=== PATIENT | male | born 1990 | race Caucasian/White ===

== ENCOUNTER 2020-07-23 13:33 | Emergency (ER) | payer SELFPAY ==
[2020-07-23 15:14] VITALS: BP 130/80; PULSE 86; RESP 16; TEMP 36.9; O2SAT 97; BMI 31.3
--- NOTE | 2020-07-23 15:39 | ED.SKABFB ---
HPI - Skin/Abscess/Foreign Bdy General Chief complaint: Skin/Abscess/Foreign Body Stated complaint: athletes foot? Time Seen by Provider: 07/23/20 15:35 History of Present Illness HPI narrative: Patient complains of fungal rash on toes and now he has been scratching a lot and he thinks he has some of the rash on his fingers, it is not painful, there is no fever or chills and no other associated symptoms this is been going on for several weeks and he thinks he got it from scratching his athlete's foot with his fingers and now has a rash on his fingers Related Data Previous Rx's Medication Instructions Recorded clotrimazole 1 applic TOPICAL BID PRN #28 g 07/23/20 fluconazole [Diflucan] 150 mg PO .once in 3 days 1 Days 07/23/20 tab hydrocortisone 1 applic TOPICAL BID PRN #20 g 07/23/20 Allergies Allergy/AdvReac Type Severity Reaction Status Date / Time No Known Allergies Allergy Verified 07/23/20 15:17 Review of Systems Review of Systems: No fever no chills no numbness no weakness no paresthesias no joint pain Yes all other systems are reviewed and are negative FORMERLY [facility] Past Medical History Source: nursing notes reviewed Medical History (Updated 07/23/20 @ 15:41 by JABIER Franco) No known health problems Social History Social History Advance Directives: No Advance Directives Information Provided: No Physical Exam Vital Signs: Vital Signs: Last Vital Signs Temp 98.4 F 07/23/20 15:14 Pulse 86 07/23/20 15:14 Resp 16 07/23/20 15:14 BP 130/80 07/23/20 15:14 Pulse Ox 97 07/23/20 15:14 Body Mass Index 31.3 Patient is A&O x3 comfortable cooperative no acute distress Neck is supple Respiratory no respiratory distress Exam of the fingers shows small whitish lesions on fingertips which are not tender there is no surrounding erythema, no sign of secondary infection, skin is intact, no blistering Web spaces in toe is show rash consistent with athlete's foot neuro, no focal deficit Course Course Course Narrative: Patient thinks rash on fingers is related to his fungal infection in his toes I was unsure so I recommended applied antifungal but also use hydrocortisone in case it is a nonspecific dermatitis Discharge Plan Discharge Clinical Impression: Tinea pedis Qualifiers: Laterality: bilateral Qualified Code(s): B35.3 - Tinea pedis Patient Disposition: Home, Self-Care Additional Instructions: Rash on fingers may be inflammatory or possibly fungal so we are treating with both antifungal in cream and anti-inflammatory cream If not better follow with primary physician or regional transportation manager Return to ER any time any worse condition or any concerns Prescriptions: New clotrimazole 1 % cream 1 applic topical BID PRN (Reason: fungal rash) Qty: 28 RF: 0 fluconazole [Diflucan] 150 mg tablet 150 mg PO .once in 3 days 1 Days RF: 0 hydrocortisone 2.5 % cream 1 applic topical BID PRN (Reason: rash) Qty: 20 RF: 0 Interventions: ED Discharge Assessment Last Done: 07/23/20 16:00 Discharge Date/Time: 07/23/20 16:00
[2020-07-23] MEDS: Fluconazole 150 MG TABLET PO (15:57)
== END 2020-07-23 16:00 | disposition home or self-care (01) ==
PROVIDERS: Emergency Provider Internal Medicine
DX: B35.3 Tinea pedis (principal); Z79.899 Other long term (current) drug therapy
CPT/HCPCS: 99283

== ENCOUNTER 2021-03-30 10:29 | Emergency (ER) | payer MEDICAID, SELFPAY ==
--- NOTE | ~2021-03-30 | CT_ITS ---
EXAMINATION: CT ABDOMEN AND PELVIS WITHOUT CONTRAST CLINICAL INFORMATION: Left low quadrant pain COMPARISON: February 06, 2010 TECHNIQUE: Multidetector volumetric imaging was performed from the superior aspect of the liver through the pubic symphysis. Sagittal and coronal reformatted images were obtained on the technologist's workstation. This CT examination was performed using dose optimization techniques as appropriate, variously including the following: *Automated exposure control *Adjustment of mA and/or kV according to patient size (this includes techniques or standardized protocols for targeted exams where dose is matched to indication/reason for exam; i.e. extremities or head) *Use of iterative reconstruction technique DLP: 602 mGy-cm FINDINGS: LUNG BASES: Lung bases appear unremarkable. No pleural or pericardial effusion. LIVER, GALLBLADDER, AND BILIARY TREE: The liver is normal in size, shape, and attenuation. No focal hepatic lesion or biliary ductal dilatation is present. The gallbladder is unremarkable with no evidence of radiopaque gallstones, gallbladder wall thickening, or obvious pericholecystic inflammatory changes. PANCREAS: Unremarkable. SPLEEN: Unremarkable. ADRENAL GLANDS: Unremarkable. KIDNEYS AND URETERS: The kidneys are normal in size, shape, and attenuation. No hydronephrosis, hydroureter, or calculi seen. No perinephric stranding. BLADDER: Unremarkable. GASTROINTESTINAL TRACT: No free air or free fluid is identified. No dilated loops of large or small bowel. There is no evidence of acute diverticulitis. No pericolonic inflammatory changes seen. The appendix appears unremarkable. ABDOMINAL WALL: No significant hernia is appreciated. LYMPH NODES: No lymphadenopathy is appreciated. VASCULAR: Unremarkable. PELVIC VISCERA: No abnormal pelvic mass or free fluid is seen. There are some prostate calcifications present. OSSEOUS STRUCTURES: Unremarkable. CT/CT abdomen pelvis wo con IMPRESSION: No specific abnormal findings to suggest patient's complaints.
[2021-03-30 10:36] VITALS: BP 121/76; PULSE 92; RESP 16; TEMP 36.4; O2SAT 96; BMI 31.6
--- NOTE | 2021-03-30 11:53 | ED_ITS ---
HPI - Abdominal Pain General Chief Complaint: Abdominal Pain Stated Complaint: bladder pain Time Seen by Provider: 03/30/21 11:30 History of Present Illness HPI narrative: Patient 30 old male presents today with having pain on urination pain in the left lower quadrant. Patient is sexually active with multiple partners no condom no penile discharge. Patient complained the pain is sharp in nature. Never had a kidney stone in the past. Does not radiate to the flank. No fever no chills no cough no congestion or respiratory symptoms. No nausea no vomiting. No change in bowel movement. Patient from home. No history of abdominal surgery in the past. No history kidney stones in the past. Related Data Previous Rx's Medication Instructions Recorded clotrimazole 1 % topical cream 1 applic TOPICAL BID PRN #28 g 07/23/20 fluconazole 150 mg tablet 150 mg PO .once in 3 days 1 Days 07/23/20 (Diflucan) tab hydrocortisone 2.5 % topical cream 1 applic TOPICAL BID PRN #20 g 07/23/20 doxycycline hyclate 100 mg tablet 100 mg PO BID 7 Days #14 tab 03/30/21 Allergies Allergy/AdvReac Type Severity Reaction Status Date / Time No Known Allergies Allergy Verified 07/23/20 15:17 Review of Systems Review of Systems Constitutional: No Weight loss, No Fever, No Chills, No Night Sweats, No Fatigue, No Malaise ENT/Mouth: No Hearing loss, No Ear Pain, No Nasal Congestion, No Sinus Pain, No Hoarseness, No sore throat, No Rhinorrhea, No Swallowing Difficulty Eyes: No Eye Pain, No Swelling, No Redness, No Foreign Body, No Discharge, No Vision Changes Cardiovascular: No Chest Pain, No SOB, No Dyspnea on Exertion, No Orthopnea, No Edema, No Palpitations Respiratory: No Cough, No Sputum, No Wheezing, No Smoke Exposure, No Dyspnea Gastrointestinal: No Nausea, No Vomiting, No Diarrhea, No Constipation, No abdo ebony Pain, No Hematochezia, No Melena Genitourinary: no irregular bleeding, No Dysuria, No Urinary Frequency, No Hematuria, No Urinary Incontinence, No Urgency, No Flank Pain, No Urinary Flow Changes, No Hesitancy Musculoskeletal: No joint pain, No Myalgias, No Joint Swelling Skin: No Skin Lesions, No rash Neuro: No Weakness, No Numbness, No Paresthesias, No Loss of Consciousness, No Dizziness, No Headache Psych: No Anxiety/Panic, No Depression, No SI/HI/AH/VH, No Social Issues, Heme/Lymph: No Bruising, No Bleeding,No Lymphadenopathy Endocrine: No Polyuria, No Polydipsia, No Temperature Intolerance Physical Exam Vital Signs: Vital Signs: Last Vital Signs Temp 98.2 F 03/30/21 14:00 Pulse 62 03/30/21 14:00 Resp 18 03/30/21 14:00 BP 113/71 03/30/21 14:00 Pulse Ox 97 03/30/21 14:00 Body Mass Index 31.6 Appearance: Alert. Oriented X3. No acute distress. Eyes: Pupils equal, round and reactive to light. ENT: Pharynx normal. Neck: Normal inspection. Neck supple. No lymph nodes noted. No crepitus CVS: Normal heart rate and rhythm. Pulses normal. Normal S1 and S2 Respiratory: No respiratory distress. Breath sounds normal. No Wheezing. No rales Abdomen: Soft and nontender. No rigidity. No distention. good BS x4 Skin: Skin warm and dry. Normal skin color. Normal skin turgor. Extremities: No lower extremity edema. Neurovascular intact to all extremities. No Lacerations. No Rash Neuro: Oriented X 3. No motor deficit. No sensory deficit. Moving all extermities. No slurred speech MDM - Abdominal Pain MDM Narrative Medical decision making narrative: Patient's urine showed no signs of infection. GC chlamydia was sent. CT scan of the abdomen did not show any acute evidence of stone. Will discharge patient home. Will go ahead and treat patient for possible STD. Will have patient take precaution. CT scan also did not show any acute evidence of obstruction, abscess, perforation. Patient is in stable cond ition with discharge home Lab Data Result diagrams: 03/30/21 12:05 03/30/21 12:05 Labs: Lab Results 03/30/21 03/30/21 03/30/21 Range/Units 12:05 12:05 12:09 WBC 10.4 (4.8-10.8) X10*3/uL RBC 5.58 (4.60-5.80) X10*6/uL Hgb 17.8 (14.0-18.0) g/dl Hct 51.0 (42-52) % MCV 91.4 (80-98) fL MCH 31.9 (27.0-33.0) pg MCHC 34.9 (31.0-36.0) g/dl RDW 12.2 (11.0-16.0) % Plt Count 261 (160-400) X10*3/uL MPV 9.8 (9.4-12.4) fL Immature Gran % (Auto) 0.3 (0.0-0.4) % Neut % (Auto) 70.8 (45-73) % Lymph % (Auto) 20.2 (20-40) % [place] % (Auto) 7.2 (2-11) % Eos % (Auto) 1.2 (0-4) % Baso % (Auto) 0.3 (0-2) % Lymph # (Auto) 2.1 (1.2-4.9) X10*3/uL [place] # (Auto) 0.8 (0.1-1.2) X10*3/uL Eos # (Auto) 0.1 (0.0-0.4) X10*3/uL Baso # (Auto) 0.0 (0.0-0.2) X10*3/uL Abs Immat Gran (auto) 0.03 (0.00-0.03) X10*3/uL Absolute Neuts (auto) 7.4 (2.0-8.3) X10*3/uL Absolute Nucleated RBC 0.000 (0.0-0.012) X10*3/uL Nucleated RBC % (auto) 0.0 (0.0-0.2) /100WBC Sodium 136 (135-145) mmol/L Potassium 4.5 (3.3-5.1) mmol/L Chloride 102 (96-108) mmol/L Carbon Dioxide 26 (22-29) mmol/L Anion Gap 13 (12-20) BUN 23 H (9-16) mg/dL Creatinine 1.40 (0.5-1.4) mg/dL Estim Creat Clear Calc 85.9 Estimated GFR 60 Random Glucose 77 (60-115) mg/dL Calcium 10.2 (8.4-10.2) mg/dL Urine Color YELLOW Urine Appearance CLEAR Urine pH 6.0 (5.0-8.0) Ur Specific [place] 1.020 (1.005-1.025) Urine Protein TRACE (NEG-TRACE) MG/DL Urine Glucose (UA) NEG (NEG) MG/DL Urine Ketones NEG (NEG) MG/DL Urine Blood NEG (NEG) Urine Nitrite NEG (NEG) Ur Leukocyte Esterase NEG (NEG) Urine RBC 0-2 (0) /HPF Urine WBC 0-2 (0-4) /HPF Ur Squamous Epith Cells NONE /LPF Ur Renal Epithelial Cell TRACE /LPF Calcium Phosphate Cryst TRACE /LPF Urine Bacteria NONE /LPF Chlam trachomat DNA PCR (Not Detect.) N.gonorrhoeae DNA (PCR) (Not Detect.) 03/30/21 Range/Units 13:20 WBC (4.8-10.8) X10*3/uL RBC (4.60-5.80) X10*6/uL Hgb (14.0-18.0) g/dl Hct (42-52) % MCV (80-98) fL MCH (27.0-33.0) pg MCHC (31.0-36.0) g/dl RDW (11.0-16.0) % Plt Count (160-400) X10*3/uL MPV (9.4-12.4) fL Immature Gran % (Auto) (0.0-0.4) % Neut % (Auto) (45-73) % Lymph % (Auto) (20-40) % [place] % (Auto) (2-11) % Eos % (Auto) (0-4) % Baso % (Auto) (0-2) % Lymph # (Auto) (1.2-4.9) X10*3/uL [place] # (Auto) (0.1-1.2) X10*3/uL Eos # (Auto) (0.0-0.4) X10*3/uL Baso # (Auto) (0.0-0.2) X10*3/uL Abs Immat Gran (auto) (0.00-0.03) X10*3/uL Absolute Neuts (auto) (2.0-8.3) X10*3/uL Absolute Nucleated RBC (0.0-0.012) X10*3/uL Nucleated RBC % (auto) (0.0-0.2) /100WBC Sodium (135-145) mmol/L Potassium (3.3-5.1) mmol/L Chloride (96-108) mmol/L Carbon Dioxide (22-29) mmol/L Anion Gap (12-20) BUN (9-16) mg/dL Creatinine (0.5-1.4) mg/dL Estim Creat Clear Calc Estimated GFR Random Glucose (60-115) mg/dL Calcium (8.4-10.2) mg/dL Urine Color Urine Appearance Urine pH (5.0-8.0) Ur Specific [place] (1.005-1.025) Urine Protein (NEG-TRACE) MG/DL Urine Glucose (UA) (NEG) MG/DL Urine Ketones (NEG) MG/DL Urine Blood (NEG) Urine Nitrite (NEG) Ur Leukocyte Esterase (NEG) Urine RBC (0) /HPF Urine WBC (0-4) /HPF Ur Squamous Epith Cells /LPF Ur Renal Epithelial Cell /LPF Calcium Phosphate Cryst /LPF Urine Bacteria /LPF Chlam trachomat DNA PCR NOT DETECTED (Not Detect.) N.gonorrhoeae DNA (PCR) NOT DETECTED (Not Detect.) Discharge Plan Discharge Clinical Impression: Dysuria Patient Disposition: Home, Self-Care Instructions: Sexually Transmitted Diseases (ED), Male Condom Use (ED), Safe Sex Practices (ED) Prescriptions: New doxycycline hyclate 100 mg tablet 100 mg PO BID 7 Days Qty: 14 RF: 0 No Action clotrimazole 1 % cream 1 applic topical BID PRN (Reason: fungal rash) Qty: 28 RF: 0 fluconazole [Diflucan] 150 mg tablet 150 mg PO .once in 3 days 1 Days RF: 0 hydrocortisone 2.5 % cream 1 applic topical BID PRN (Reason: rash) Qty: 20 RF: 0 Referrals: Physician,None [Primary Care Provider] - 2 days (No sexual activity until partners are tested. Treated.) [facility] Past Medical History Attestation statement: The following information was validated with the patient. Medical History No known health problems Social History Social History Alcohol intake: never Patient Tobacco Use Status: Never used Tobacco Use of substances other than those prescribed or required for medical reasons: No Advance Directives: Yes Advance Directives Information Provided: Yes Advance Directives on File: No
[2021-03-30 12:10] LABS: MANUAL DIFF FLAG NO
[2021-03-30 12:13] LABS: Basophils Percent Auto 0.3 % (0-2); Eosinophils Absolute Auto 0.1 X10*3/uL (0.0-0.4); Eosinophils Percent Auto 1.2 % (0-4); Hemoglobin 17.8 g/dl (14.0-18.0); Imm Gran Abs Auto 0.03 X10*3/uL (0.00-0.03); Imm Gran Pct Auto 0.3 % (0.0-0.4); Lymphocytes Absolute Auto 2.1 X10*3/uL (1.2-4.9); Lymphocytes Percent Auto 20.2 % (20-40); Mean Corpuscular HGB Conc 34.9 g/dl (31.0-36.0); Mean Corpuscular Hemoglobin 31.9 pg (27.0-33.0); Mean Corpuscular Volume 91.4 fL (80-98); Mean Platelet Volume 9.8 fL (9.4-12.4); Monocytes Absolute Auto 0.8 X10*3/uL (0.1-1.2); Monocytes Percent Auto 7.2 % (2-11); Neutrophils Absolute Auto 7.4 X10*3/uL (2.0-8.3); Neutrophils Percent Auto 70.8 % (45-73); Platelet Count 261 X10*3/uL (160-400); Red Blood Count 5.58 X10*6/uL (4.60-5.80); Red Cell Distribution Width 12.2 % (11.0-16.0); White Blood Count 10.4 X10*3/uL (4.8-10.8)
[2021-03-30 12:20] LABS: Appearance Urine CLEAR; Color Urine YELLOW; Glucose Urine UA NEG (NEG); Leukocyte Esterase Urine NEG (NEG); Nitrite Urine NEG (NEG); Urine Blood NEG (NEG); Urine Ketones NEG (NEG); Urine Protein TRACE MG/DL (NEG-TRACE)
[2021-03-30 12:26] VITALS: BP 166/77; PULSE 61; RESP 19; TEMP 36.7; O2SAT 98
[2021-03-30 12:31] LABS: RBC Urine 0-2 /HPF (0); Renal Epithelial Cells Urine TRACE /LPF; WBC Urine 0-2 /HPF (0-4)
[2021-03-30 12:32] LABS: Calcium Phosphate Crystals Ur TRACE /LPF
[2021-03-30 12:43] LABS: Anion Gap 13 (12-20); Blood Urea Nitrogen 23 mg/dL (9-16); Calcium 10.2 mg/dL (8.4-10.2); Carbon Dioxide 26 mmol/L (22-29); Chloride 102 mmol/L (96-108); Creatinine Clr Calc Pharmacy 85.9; Estimated Glomerular Filt Rate 60; Glucose Random 77 mg/dL (60-115); Potassium 4.5 mmol/L (3.3-5.1); Sodium 136 mmol/L (135-145)
[2021-03-30 14:00] VITALS: BP 113/71; PULSE 62; RESP 18; TEMP 36.8; O2SAT 97
[2021-03-30 15:13] LABS: CT PCR NOT DETECTED (Not Detect.); NG PCR NOT DETECTED (Not Detect.)
--- NOTE | 2021-03-30 16:18 | PC.NURSE ---
into room to discharge pt x3, not present, unable to find pt
--- NOTE | 2021-03-30 16:21 | PC.NURSE ---
Unsure if pt eloped prior to IV removed- [facility] contacted.
== END 2021-03-30 16:24 | disposition home or self-care (01) ==
PROVIDERS: Emergency Provider Emergency Medicine Emergency Medical Services
DX: R30.0 Dysuria (principal); R10.32 Left lower quadrant pain; Z87.442 Personal history of urinary calculi
CPT/HCPCS: 36415; 74176; 80048; 81001; 85025; 87491; 87591; 96360; 96372; 99284

== ENCOUNTER 2021-12-22 13:52 | Outpatient (REF) | payer MEDICAID, SELFPAY ==
--- NOTE | ~2021-12-22 | XR_ITS ---
EXAMINATION: BILATERAL WRIST X-RAY CLINICAL INFORMATION: Pain COMPARISON: Previous left wrist x-ray October 2013 TECHNIQUE: 4 views of each wrist FINDINGS: Left: Bone alignment is normal. No fracture or dislocation is seen. The joint spaces are normal. The soft tissues are normal. Right: Bone alignment is normal. No fracture or dislocation is seen. Joint spaces are normal. Soft tissues are normal. XR/XR wrist LT min 3V IMPRESSION: Normal bilateral wrists.
--- NOTE | ~2021-12-22 | XR_ITS ---
EXAMINATION: BILATERAL WRIST X-RAY CLINICAL INFORMATION: Pain COMPARISON: Previous left wrist x-ray October 2013 TECHNIQUE: 4 views of each wrist FINDINGS: Left: Bone alignment is normal. No fracture or dislocation is seen. The joint spaces are normal. The soft tissues are normal. Right: Bone alignment is normal. No fracture or dislocation is seen. Joint spaces are normal. Soft tissues are normal. XR/XR wrist RT min 3V IMPRESSION: Normal bilateral wrists.
== END 2021-12-22 13:53 | disposition home or self-care (01) ==
LOC: HO.HOSX 13:52
PROVIDERS: Visit Provider Physician Assistant
DX: M25.532 Pain in left wrist (principal); M25.531 Pain in right wrist
CPT/HCPCS: 73110; 99202

== ENCOUNTER → 2022-01-17 09:16 | Outpatient (BNVA) | payer MEDICAID, SELFPAY | PROVIDERS: Visit Provider Orthopaedic Surgery | DX: M25.531 Pain in right wrist (principal); M25.532 Pain in left wrist | CPT/HCPCS: 99212 ==

== ENCOUNTER 2022-01-25 14:02 | Outpatient (REF) | payer MEDICAID, SELFPAY ==
--- NOTE | ~2022-01-25 | MR_ITS ---
EXAMINATION: MR WRIST WITHOUT CONTRAST, RIGHT CLINICAL INFORMATION: Right wrist pain. COMPARISON: Right wrist radiographs dated 12/22/2021. TECHNIQUE: MRI of the wrist was performed using routine sequences on a high-field scanner. FINDINGS: TRIANGULAR FIBROCARTILAGE: Intact. INTRINSIC LIGAMENTS: There is mild attenuation and irregularity of the scapholunate ligament with a volar, lobulated cyst along the distal surface measuring 0.8 x 0.4 x 0.5 cm. No full-thickness ligament tear. Intact lunotriquetral ligament. TENDONS/MEDIAN NERVE: Minimal extensor carpi ulnaris tendinosis without a measurable tendon tear. Unremarkable median nerve. ARTICULAR CARTILAGE/BONE: Mild articular cartilage thinning with tiny marginal osteophytes at the triscaphe and 1st carpometacarpal joints. No evidence of acute osseous injury. JOINT FLUID/SOFT TISSUES: No significant joint effusion. MR/MR wrist RT wo con IMPRESSION: 1. 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 There is an associated volar cyst along the distal surface of the ligament measuring up to 0.8 cm, likely representing a ganglion cyst. 2. Minimal extensor carpi ulnaris tendinosis without a tendon tear or retraction. 3. 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
== END 2022-01-25 14:03 | disposition home or self-care (01) ==
LOC: HO.MRI 14:02
PROVIDERS: Visit Provider Orthopaedic Surgery
DX: M25.531 Pain in right wrist (principal)
CPT/HCPCS: 73221

== ENCOUNTER 2022-07-09 05:45 | Emergency (ER) | payer MEDICAID, SELFPAY ==
[2022-07-09 06:16] VITALS: BP 139/78; PULSE 102; RESP 16; TEMP 37.1; O2SAT 99; BMI 29.2
[2022-07-09 09:10] VITALS: BP 134/79; PULSE 75; RESP 16; TEMP 36.6; O2SAT 98
[2022-07-09 09:16] LABS: Appearance Urine Clear; Color Urine Yellow; Glucose Urine UA Negative (Negative); Leukocyte Esterase Urine Negative (Negative); Nitrite Urine Negative (Negative); PH 5.5 (5.0-9.0); Urine Blood Negative (Negative); Urine Ketones Negative (Negative); Urine Protein Negative (Neg-Trace)
--- NOTE | 2022-07-09 11:45 | ED_ITS ---
HPI - Male Genitourinary General Chief complaint: General Medical Stated complaint: Sore Throat, Fever Time Seen by Provider: 07/09/22 10:31 Source: patient Mode of arrival: ambulatory Limitations: no limitations History of Present Illness HPI Narrative: 31-year-old male presenting to the ER for STD check/exposure. Reports on Halloween he had a protected intercourse with another female who he has never had intercourse with. He reports that he does have a significant other that does not know that he had unprotected intercourse with another female. He reports that he has been having subjective fevers, chills, diaphoresis and he has notice sores/lesions on his penis and he is unsure if he has an STI. He re ports he also noticed a lesion to left side of his cheek, a bump to his chin and a sore throat. He reports he had chlamydia in the past years ago was treated. He denies any measured fevers, dizziness, headaches, neck pain/stiffness, trouble swallowing or breathing, chest pain or shortness of breath, cough, sputum production, nausea/vomiting/diarrhea constipation, abdominal pain, flank pain, dysuria, hematuria, abnormal penile discharge, any rashes or any other symptoms complaints or concerns at this time. MD Complaint: possible STD exposure Onset (ago): day(s) (6) Duration: constant Location: penis Severity: mild Quality: other (Itchy) Relieving factors: none Exacerbating factors: none Context: new sexual partner Associated symptoms: Reports denies other symptoms Related Data Sexually active: Yes Previous Rx's Medication Instructions Recorded doxycycline hyclate 100 mg tablet 100 mg PO BID 10 days #20 tabs 07/09/22 valacyclovir 1 gram tablet 1,000 mg PO BID herpes simplex 7 07/09/22 (Valtrex) days #14 tabs Allergies Allergy/AdvReac Type Severity Reaction Status Date / Time No Known Allergies Allergy Verified 12/22/21 14:37 Review of Systems Review of Systems: Constitutional : No Weight loss, No Fever, No Chills, No Night Sweats, No Fatigue, NoMalaise ENT/Mouth: + sore throat, + sore in his left cheek, No ear pain, No sore throat, No Difficulty swallowing Cardiovascular : No Chest Pain, No SOB, No Dyspnea on Exertion, No Orthopnea, NoEdema, No Palpitations Respiratory : No Cough, No Sputum, No Wheezing, No Dyspnea Gastrointestinal : No Nausea, No Vomiting, No Diarrhea, No abdominal Pain, No Hematochezia, No Melena Genitourinary : + genital lesions, No testicular pain, No irregular bleeding, No Dysuria, No Urinary Frequency, No Hematuria,No Urinary Incontinence, No Urgency, No Flank Pain Musculoskeletal : No joint pain, No Myalgias, No Joint Swelling Skin : No Skin Lesions, No rash Neuro : No Weakness, No Numbness, No Paresthesias, No Loss of Consciousness, NoDizziness, No Headache Psych : No Social Issues, Heme/Lymph: No Bruising, No Bleeding,No Lymphadenopathy Endocrine : No Polyuria, No Polydipsia, No Temperature Intolerance PATIENT DENIES ANY THOUGHTS OF STDS Yes all other systems are reviewed and are negative [facility] Past Medical History Attestation statement: The following information was validated with the patient. Source: old records reviewed, obtained from family and nursing notes reviewed Medical History No known health problems Family History Family History Father Diabetes Multiple sclerosis Social History Social History Household Members: Spouse and Children Housing: House Alcohol intake: former Patient Tobacco Use Status: Never used Tobacco Advance Directives: No Advance Directives Information Provided: No Physical Exam Vital Signs: Vital Signs: Last Vital Signs Temp 97.8 F 07/09/22 09:10 Pulse 75 07/09/22 09:10 Resp 16 07/09/22 09:10 BP 134/79 07/09/22 09:10 Pulse Ox 98 07/09/22 09:10 O2 Del Method 07/09/22 09:10 BMI result Body Mass Index 29.2 vital signs have been reviewed as normal and appeared to be correct. Blood pressure normal. Heart rate normal. Respiration rate normal. Temperature normal. Oxygen saturation normal. Appearance: Alert. Oriented X3. No acute distress. Head: Normal external exam. Normocephalic. Atraumatic. Eyes: PERRLA. EOMI. Conjunctiva and sclera normal. Eyelids normal. ENT: EAC normal. TM's Normal. Patient noted to have a canker sore to left b uccal area. Pharynx normal. Uvula midline. Moist mucous membranes. No additional lesions/ulcerations or masses noted on the tongue. Normal voice. No trismus noted. No drooling noted. No muffled voice noted. Neck: Normal inspection. Neck supple. FROM. No adenopathy. No meningeal signs. CVS: Normal heart rate and rhythm. Heart sound normal. No murmurs noted. Pulses normal throughout. Respiratory: No respiratory distress. Painless inspiration. Breath sounds normal. No wheezes/rales/rhonchi noted. Chest nontender. No accessory muscle usage noted or decreased air movement noted. Abdomen: Soft and nontender. Bowel sounds normal in all 4 quadrants. No distention noted. No organomegaly noted. No visible injury noted. : Chaperoned by SAQIB Hare. Patient noted to have shallow lesions scattered to the shaft of the penis and the scrotal area. When he retracts the foreskin there are no lesions that are visible or any pustules or vesicles noted. The rest of the external exam is within normal limits no additional masses/lumps/ecchymosis/edema/erythema/lacerations/vesicles/induration or tenderness noted. No hernia noted. No inguinal lymphadenopathy noted. Normal penis free of discharge. The scrotum is normal. Testicles are both descended bilaterally and appear normal. No hydrocele or scrotal mass/swelling noted. No varicocele. Epididymides normal. No blue dot sign. Back: No CVA tenderness. Full range of motion noted. Skin: Skin warm and dry. Normal skin color. Normal skin turgor. No rashes/lesions/lacerations noted. Extremities: Extremities exhibit normal range of motion. Extremities nontender. Neuro: Oriented X 3. No motor deficit. No sensory deficit. Reflexes normal. Course Course Course Narrative: 31-year-old presenting after having unprotected intercourse with another female on [facility] and over the past few days had developed subjective fevers, chills, fatigue, malaise, sore throat, sore to the left side of his cheek, lump to his chin that he believes is a pimple, lesions to the penile/calf area. Denies any other symptoms complaints or concerns. On exam he does have some lesions to the shaft of the penis in the scrotal area. Possibly consistent with herpes. Patient UA within normal limits. Will treat for gonorrhea with 500 mg of IM Rocephin, chlamydia with 100 mg of doxycycline b.i.d. for 10 days, syphilis with 2.4 million pen G and Valtrex for herpes. I explained to him that he will have pending lab results that he should sustain from any sexual intercourse until his results come back and until all his partners are treated. Patient understands agrees with this plan. MDM - Male Genitourinary Medical Records Attestation: I reviewed the patient's medical records. Lab Data Attestation: I reviewed the patient's lab results. Result diagrams: 07/09/22 11:44 07/09/22 11:44 Labs: Lab Results 07/09/22 07/09/22 07/09/22 Range/Units 09:10 11:44 11:44 WBC 6.5 (4.8-10.8) X10*3/uL RBC 5.23 (4.60-5.80) X10*6/uL Hgb 16.2 (14.0-18.0) g/dl Hct 47.3 (42.0-52.0) % MCV 90.4 (80.0-98.0) fL MCH 31.0 (27.0-33.0) pg MCHC 34.2 (31.0-36.0) g/dl RDW 11.8 (11.0-16.0) % Plt Count 259 (160-400) X10*3/uL MPV 9.4 (9.4-12.4) fL Immature Gran % (Auto) 0.3 (0.0-0.4) % Neut % (Auto) 60.0 (45-73) % Lymph % (Auto) 30.9 (20-40) % [place] % (Auto) 7.4 (2-11) % Eos % (Auto) 0.9 (0-4) % Baso % (Auto) 0.5 (0-2) % Lymph # (Auto) 2.0 (1.2-4.9) X10*3/uL [place] # (Auto) 0.5 (0.1-1.2) X10*3/uL Eos # (Auto) 0.1 (0.0-0.4) X10*3/uL Baso # (Auto) 0.0 (0.0-0.2) X10*3/uL Abs Immat Gran (auto) 0.02 (0.00-0.03) X10*3/uL Absolute Neuts (auto) 3.9 (2.0-8.3) x10*3/uL Absolute Nucleated RBC 0.000 (0.0-0.012) X10*3/uL Nucleated RBC % (auto) 0.0 (0.0-0.2) /100WBC Sodium 140 (135-145) mmol/L Potassium 4.1 (3.3-5.1) mmol/L Chloride 102 (96-108) mmol/L Carbon Dioxide 26 (22-29) mmol/L Anion Gap 16 (12-20) BUN 14 (9-16) mg/dL Creatinine 1.20 (0.5-1.4) mg/dL Estim Creat Clear Calc 95.7 Estimated GFR > 60 Random Glucose 99 (60-115) mg/dL Calcium 9.3 D (8.4-10.2) mg/dL Magnesium 2.0 (1.6-2.6) mg/dL Total Bilirubin 0.6 (0.0-1.0) mg/dL AST 27 (5-37) U/L ALT 45 H (0-40) U/L Alkaline Phosphatase 76 (39-117) U/L Total Protein 7.5 (6.5-8.0) g/dL Albumin 4.6 (3.5-5.0) g/dL Urine Color Yellow Urine Appearance Clear Urine pH 5.5 (5.0-9.0) Ur Specific [place] 1.020 (1.005-1.025) Urine Protein Negative (Neg-Trace) mg/dL Urine Glucose (UA) Negative (Negative) mg/dL Urine Ketones Negative (Negative) mg/dL Urine Blood Negative (Negative) Urine Nitrite Negative (Negative) Ur Leukocyte Esterase Negative (Negative) Discharge Plan Discharge Clinical Impression: Encounter for assessment of STD exposure Patient Disposition: Home, Self-Care Instructions: Genital Herpes Simplex (ED), Sexually Transmitted Diseases (ED) Additional Instructions: You have pending lab results. If any are positive you will be contacted within 5-7 days. Avoid any sexual intercourse until you have your results. Any of your partners will also have to be treated if he recently had any intercourse with them. If they are not treated you will reinfect yourself and would have to be re-treated. Prescriptions: New valacyclovir [Valtrex] 1 gram tablet 1,000 mg PO BID 7 Days Qty: 14 0RF doxycycline hyclate 100 mg tablet 100 mg PO BID 10 Days Qty: 20 0RF Referrals: Physician,Unknown J [Primary Care Provider] - 2 days (your pcp) Print Language: Khmer
[2022-07-09 11:50] LABS: Eosinophils Absolute Auto 0.1 X10*3/uL (0.0-0.4); Eosinophils Percent Auto 0.9 % (0-4); Hemoglobin 16.2 g/dl (14.0-18.0); Imm Gran Abs Auto 0.02 X10*3/uL (0.00-0.03); Imm Gran Pct Auto 0.3 % (0.0-0.4); Mean Corpuscular Volume 90.4 fL (80.0-98.0); Platelet Count 259 X10*3/uL (160-400); SCAN SMEAR FLAG 1
[2022-07-09] MEDS: Penicillin G Benzathine 2,400,000 UNIT/4 ML SYRINGE 2400000 UNIT IM (11:52)
[2022-07-09 11:56] LABS: Basophils Percent Auto 0.5 % (0-2); Hematocrit 47.3 % (42.0-52.0); Lymphocytes Percent Auto 30.9 % (20-40); Mean Corpuscular HGB Conc 34.2 g/dl (31.0-36.0); Mean Platelet Volume 9.4 fL (9.4-12.4); Monocytes Absolute Auto 0.5 X10*3/uL (0.1-1.2); Monocytes Percent Auto 7.4 % (2-11); Neutrophils Absolute Auto 3.9 x10*3/uL (2.0-8.3); Red Blood Count 5.23 X10*6/uL (4.60-5.80); Red Cell Distribution Width 11.8 % (11.0-16.0); White Blood Count 6.5 X10*3/uL (4.8-10.8)
[2022-07-09] MEDS: cefTRIAXone sodium 500 MG, Lidocaine HCl 1 % MPF 1 ML IM (11:57)
[2022-07-09 11:58] LABS: MANUAL DIFF FLAG NO
[2022-07-09 12:07] LABS: Alanine Aminotransferase 45 U/L (0-40); Albumin Level 4.6 g/dL (3.5-5.0); Alkaline Phosphatase 76 U/L (39-117); Anion Gap 16 (12-20); Aspartate Amino Transferase 27 U/L (5-37); Bilirubin Total 0.6 mg/dL (0.0-1.0); Blood Urea Nitrogen 14 mg/dL (9-16); Calcium 9.3 mg/dL (8.4-10.2); Carbon Dioxide 26 mmol/L (22-29); Chloride 102 mmol/L (96-108); Creatinine Clr Calc Pharmacy 95.7; Estimated Glomerular Filt Rate > 60; Glucose Random 99 mg/dL (60-115); Potassium 4.1 mmol/L (3.3-5.1); Sodium 140 mmol/L (135-145); Total Protein 7.5 g/dL (6.5-8.0)
[2022-07-09 14:02] LABS: CT PCR NOT DETECTED (Not Detect.); NG PCR NOT DETECTED (Not Detect.)
[2022-07-10 05:31] LABS: Syphilis Screen Nonreactive (Nonreactive)
== END 2022-07-09 12:52 | disposition home or self-care (01) ==
PROVIDERS: Physician Assistant Medical; Emergency Provider Emergency Medicine
DX: R50.9 Fever, unspecified (principal); J02.9 Acute pharyngitis, unspecified; Z20.2 Contact with and (suspected) exposure to infections with a predominantly sexual mode of transmission; Z79.899 Other long term (current) drug therapy
CPT/HCPCS: 36415; 80053; 81003; 83735; 85025; 86780; 87255; 87491; 87591; 99282; J0561; J0696